=== PATIENT | male | born 1960 | race Caucasian/White ===

== ENCOUNTER 2023-05-13 08:28 | Outpatient (CLI) | payer OTHER, SELFPAY | END 2023-05-13 08:29 | disposition home or self-care (01) | LOC: CSHWCC 08:28 | PROVIDERS: ATTEND Physician Assistant | DX: L02.611 Cutaneous abscess of right foot (principal); E11.8 Type 2 diabetes mellitus with unspecified complications | CPT/HCPCS: 97605 ==

== ENCOUNTER 2023-05-17 10:00 | Outpatient (CLI) | payer OTHER | END 2023-05-17 10:01 | disposition home or self-care (01) | LOC: CSHWCC 10:00 | PROVIDERS: ATTEND Physician Assistant | DX: E11.621 Type 2 diabetes mellitus with foot ulcer (principal); L97.519 Non-pressure chronic ulcer of other part of right foot with unspecified severity | CPT/HCPCS: 97597; 97598; 97605; 99213; G0463 ==

== ENCOUNTER 2023-05-21 11:12 | Outpatient (CLI) | payer OTHER | END 2023-05-21 11:13 | disposition home or self-care (01) | LOC: CSHWCC 11:12 | PROVIDERS: ATTEND Physician Assistant | DX: E11.621 Type 2 diabetes mellitus with foot ulcer (principal); L97.519 Non-pressure chronic ulcer of other part of right foot with unspecified severity | CPT/HCPCS: 97605 ==

== ENCOUNTER 2023-05-23 13:42 | Outpatient (CLI) | payer SELFPAY | END 2023-05-23 13:43 | disposition home or self-care (01) | LOC: CSHWCC 13:42 | PROVIDERS: ATTEND Physician Assistant | DX: E11.621 Type 2 diabetes mellitus with foot ulcer (principal); L97.509 Non-pressure chronic ulcer of other part of unspecified foot with unspecified severity | CPT/HCPCS: 97605 ==

== ENCOUNTER 2023-05-28 10:37 | Outpatient (CLI) | payer SELFPAY | END 2023-05-28 10:38 | disposition home or self-care (01) | LOC: CSHWCC 10:37 | PROVIDERS: ATTEND Physician Assistant | DX: E11.621 Type 2 diabetes mellitus with foot ulcer (principal); L97.509 Non-pressure chronic ulcer of other part of unspecified foot with unspecified severity | CPT/HCPCS: 97605 ==

== ENCOUNTER 2023-06-17 15:25 | Outpatient (CLI) | payer OTHER | END 2023-06-17 15:26 | disposition home or self-care (01) | LOC: CSHWCC 15:25 | PROVIDERS: ATTEND Physician Assistant | DX: E11.621 Type 2 diabetes mellitus with foot ulcer (principal); L97.526 Non-pressure chronic ulcer of other part of left foot with bone involvement without evidence of necrosis | CPT/HCPCS: 97605 ==

== ENCOUNTER 2023-06-26 14:10 | Outpatient (CLI) | payer SELFPAY | END 2023-06-26 14:11 | disposition home or self-care (01) | LOC: CSHWCC 14:10 | PROVIDERS: ATTEND Preventive Medicine Undersea and Hyperbaric Medicine | DX: E11.621 Type 2 diabetes mellitus with foot ulcer (principal); L97.526 Non-pressure chronic ulcer of other part of left foot with bone involvement without evidence of necrosis | CPT/HCPCS: 97605 ==

== ENCOUNTER 2023-07-02 13:05 | Outpatient (CLI) | payer SELFPAY | END 2023-07-02 13:06 | disposition home or self-care (01) | LOC: CSHWCC 13:05 | PROVIDERS: ATTEND Physician Assistant | DX: E11.621 Type 2 diabetes mellitus with foot ulcer (principal); L97.526 Non-pressure chronic ulcer of other part of left foot with bone involvement without evidence of necrosis | CPT/HCPCS: 99213; G0463 ==

== ENCOUNTER 2023-07-09 10:23 | Outpatient (CLI) | payer OTHER | END 2023-07-09 10:24 | disposition home or self-care (01) | LOC: CSHWCC 10:23 | PROVIDERS: ATTEND Physician Assistant | DX: E11.621 Type 2 diabetes mellitus with foot ulcer (principal); L97.526 Non-pressure chronic ulcer of other part of left foot with bone involvement without evidence of necrosis | CPT/HCPCS: 99213; G0463 ==

== ENCOUNTER 2023-07-16 10:07 | Outpatient (CLI) | payer SELFPAY | END 2023-07-16 10:08 | disposition home or self-care (01) | LOC: CSHWCC 10:07 | PROVIDERS: ATTEND Nurse Practitioner Family | DX: E11.621 Type 2 diabetes mellitus with foot ulcer (principal); L97.526 Non-pressure chronic ulcer of other part of left foot with bone involvement without evidence of necrosis | CPT/HCPCS: 11042 ==

== ENCOUNTER 2023-07-23 14:14 | Outpatient (CLI) | payer SELFPAY | END 2023-07-23 14:15 | disposition home or self-care (01) | LOC: CSHWCC 14:14 | PROVIDERS: ATTEND Nurse Practitioner Family | DX: E11.621 Type 2 diabetes mellitus with foot ulcer (principal); L97.526 Non-pressure chronic ulcer of other part of left foot with bone involvement without evidence of necrosis | CPT/HCPCS: 11042 ==

== ENCOUNTER 2023-07-30 09:19 | Outpatient (CLI) | payer OTHER | END 2023-07-30 09:20 | disposition home or self-care (01) | LOC: CSHWCC 09:19 | PROVIDERS: ATTEND Nurse Practitioner Family | DX: E11.621 Type 2 diabetes mellitus with foot ulcer (principal); L97.526 Non-pressure chronic ulcer of other part of left foot with bone involvement without evidence of necrosis | CPT/HCPCS: 11042 ==

== ENCOUNTER 2023-08-06 16:08 | Outpatient (CLI) | payer OTHER | END 2023-08-06 16:09 | disposition home or self-care (01) | LOC: CSHWCC 16:08 | PROVIDERS: ATTEND Nurse Practitioner Family | DX: E11.621 Type 2 diabetes mellitus with foot ulcer (principal); L97.526 Non-pressure chronic ulcer of other part of left foot with bone involvement without evidence of necrosis | CPT/HCPCS: 11042 ==